=== PATIENT | female | born 1960 | race Caucasian/White ===

== ENCOUNTER → 2016-09-04 | Outpatient (CLI) | payer BC | LOC: BMCIMAGING 09:40 | PROVIDERS: ATTEND Family Medicine | DX: M25.572 Pain in left ankle and joints of left foot (principal) ==

== ENCOUNTER → 2017-04-05 | Outpatient (CLI) | payer BC | LOC: FIMAGING 15:21 | PROVIDERS: ATTEND Family Medicine | DX: Z12.31 Encounter for screening mammogram for malignant neoplasm of breast (principal) ==

== ENCOUNTER → 2018-06-25 | Outpatient (CLI) | payer BC | LOC: FIMAGING 10:23 | DX: Z12.31 Encounter for screening mammogram for malignant neoplasm of breast (principal) ==